=== PATIENT | female | born 1985 | race Caucasian/White ===

== ENCOUNTER 2023-08-16 22:19 | Inpatient (IN) | payer BC ==
[~2023-08-16] VITALS: Ht 175.3 cm; Wt 85.5 kg
--- NOTE | 2023-08-16 22:25 | NUR ---
to unit via wheelchair for labor assessment, accompanied by spouse. Pt reports "my water broke at 8:30." Oriented to room, monitor, plan of care. Questions invited and answered.
[2023-08-16 22:38] VITALS: BP 109/58; PULSE 71; TEMP 98.1
[2023-08-16] MEDS ORDERED: LR 1,000 ML IV SCH (23:00)
[2023-08-16] MEDS ORDERED: ROPivacaine PF 0.2% 200 ML IV ONE (23:52)
--- NOTE | 2023-08-16 23:56 | NUR ---
[employer] MA[employer] into room for epidural placement. See anesthesia record. Pt moves sit on edge of bed, EFM monitor tracing maternal HR. 0007 Test dose.
[2023-08-17] VITALS (31 sets, daily range): BP systolic 88–125; BP diastolic 48–65; PULSE 53–102; TEMP 97.6–98.5
[2023-08-17 00:10] LABS: BASO % 0.2 % (0.0-2.0); EOS # 0.1 K/mm3 (0.0-0.7); EOS % 0.9 % (0.0-4.0); GRAN # 7.1 K/mm3 (1.4-6.5); GRAN % 71.7 % (42.2-75.2); HEMOGLOBIN 11.4 g/dl (12.5-16.0); LYMPH # 1.8 K/mm3 (1.2-3.4); LYMPH % 18.1 % (20.0-51.0); MEAN CELL VOLUME 95 fl (80.0-100.0); MEAN CORPUSCULAR HEMOGLOBIN 32 pg (27-31); MEAN CORPUSCULAR HGB CONC 33 g/dl (33.0-37.0); MEAN PLATELET VOLUME 11.9 fl (7.4-10.4); MONO # 0.9 K/mm3 (0.1-0.6); MONO % 8.9 % (1.7-9.3); PLATELET COUNT 163 K/mm3 (130-400); RED BLOOD COUNT 3.62 M/mm3 (4.10-5.30)
[2023-08-17 00:11] LABS: HEMATOCRIT 34.3 % (37.0-47.0)
[2023-08-17] MEDS ORDERED: Ondansetron 4 MG/2 ML VIAL IV PRN (00:30)
[2023-08-17] MEDS ORDERED: diphenhydrAMINE 25 MG CAP PO PRN (00:30)
[2023-08-17] MEDS ORDERED: diphenhydrAMINE 50 MG/ML 1 ML VIAL IV PRN (00:30)
[2023-08-17] MEDS ORDERED: ePHEDrine 50 MG/10 ML VIAL IV PRN (00:30)
[2023-08-17] MEDS ORDERED: Naloxone 0.4 MG/ML VIAL IV PRN ×2 (00:30→05:45)
[2023-08-17] MEDS ORDERED: LEVOXYL0.1 MG PO (00:45)
--- NOTE | 2023-08-17 02:00 | NUR ---
Pt states "it's hard to catch my breath" Points to R lower rib cage stating "it feels like his foot is pushing against my lung" SPO2 100%. Repositioned to SF, warm blanket applied to R lower ribs. bp 88/49 0204 Ephedrine 10mg IV push, LR to bolus.
--- NOTE | 2023-08-17 02:15 | NUR ---
Pt states "it's feels better"
[2023-08-17] MEDS ORDERED: LR & Oxytocin 500 ML IV SCH (03:00)
--- NOTE | 2023-08-17 04:35 | NUR ---
Pt reports increased pain and new onset of nausea. Encouraged to push epidural button. SVE Ant Rim.
--- NOTE | 2023-08-17 04:47 | NUR ---
FHT'S TO 100'S. [address] Chacon called to come for delivery. 0455 FHT's 100's moderate variability. Pt states "I'm ot pushing but I can feel him moving down".
--- NOTE | 2023-08-17 05:00 | NUR ---
FHT's 115-120. [place] catheter dc'd. 1413 Dr Chacon into room. Pt prepped for delivery. [address] Chacon, after reduction of nuchal of nuchal cord.
--- NOTE | 2023-08-17 05:16 | NUR ---
Placenta delivers spont and intact w 3vessel chord. Pitocin 30units in 500ccLR started at bolus rate per pump. 0518 Bi-manunal exam by Dr Chacon yields 0 clots, fundus firm.
[2023-08-17] MEDS ORDERED: Witch Hazel 50% Pads Bulk TUB TP PRN (05:45)
[2023-08-17] MEDS ORDERED: Magnes Hydrox (MOM) 80 MG/ML 30 ML CUP PO PRN (05:45)
[2023-08-17] MEDS ORDERED: Measles/Mumps/Rubella Virus Vaccine Live w Diluent 0.5 ML VIAL SQ SCH (05:45)
[2023-08-17] MEDS ORDERED: Mag/Al Hydrox/Simeth Susp 30 ML CUP PO PRN (05:45)
[2023-08-17] MEDS ORDERED: oxyCODONE 5 MG TAB PO PRN (05:45)
[2023-08-17] MEDS ORDERED: Loratadine 10 MG TAB PO PRN (05:45)
[2023-08-17] MEDS ORDERED: Ibuprofen 800 MG TAB PO SCH (05:45)
[2023-08-17] MEDS ORDERED: Phenylephrine/Mineral Oil/Petrolatum 57 GM TUBE RC PRN (05:45)
[2023-08-17] MEDS ORDERED: Acetaminophen 500 MG TAB PO PRN (05:45)
[2023-08-17] MEDS ORDERED: Erythromycin 0.5% Ophth Oint 1 GM UD TUBE OP SCH (07:30)
[2023-08-17] MEDS ORDERED: Phytonadione (Vitamin K) 1 MG/0.5 ML NEONATAL CONC IM SCH (07:30)
[2023-08-17] MEDS ORDERED: Sennosides/Docusate 8.6-50 MG TAB PO SCH (08:00)
[2023-08-17] MEDS ORDERED: Influenza Virus Vaccine, Quad '23-24 (6 MOS+) 0.5 ML SYRINGE IM SCH (09:00)
--- NOTE | 2023-08-17 09:50 | NUR ---
PATIENT REQUESTING TO AMBULATE TO THE BATHROOM AT THIS TIME. PATIENT DANGLES ON SIDE OF BED WITHOUT COMPLAINT OF DIZZINESS, PATIENT STANDS INDEPENDENTLY, AND AMBULATES TO THE RESTROOM WITH THIS RN. PATIENT TOLERATES AMBULATION WELL. 0911- PATIENT TO ROOM 216 VIA WHEELCHAIR. PATIENT AND SIGNIFICANT OTHER ORIENTED TO ROOM AND PATIENT ASSISTED INTO BED.
--- NOTE | 2023-08-17 20:22 | NUR ---
Report recieved. Resting in bed at this time. Updated whiteboard and reviewed POC. Questions invited and answered.
[2023-08-17] MEDS ORDERED: traZODone 50 MG TAB PO PRN (21:00)
[2023-08-18 08:00] VITALS: BP 78/42; PULSE 71; TEMP 98.7
[2023-08-18 08:30] VITALS: BP 96/67; PULSE 78
[2023-08-18] MEDS ORDERED: IBU800 M1 PO (09:22)
== END 2023-08-18 11:50 | disposition home or self-care (01) | DRG 807 ==
LOC: LDRO 22:19 → LDR 22:50 → OB 08-17 06:31 → LDR 08-17 06:31 → OB 08-17 09:55
PROVIDERS: Obstetrics & Gynecology; ADMIT Obstetrics & Gynecology
PROC: 10E0XZZ Delivery of Products of Conception, External Approach (ICD-10-PCS; principal; 2023-08-17)
PROC: 0KQM0ZZ Repair Perineum Muscle, Open Approach (ICD-10-PCS; 2023-08-17)
DX: O99.284 Endocrine, nutritional and metabolic diseases complicating childbirth (principal); Z37.0 Single live birth; E06.3 Autoimmune thyroiditis; O70.1 Second degree perineal laceration during delivery; K21.9 Gastro-esophageal reflux disease without esophagitis; O99.62 Diseases of the digestive system complicating childbirth; O69.81X0 Labor and delivery complicated by cord around neck, without compression, not applicable or unspecified; Z3A.38 38 weeks gestation of pregnancy; Z79.890 Hormone replacement therapy
CPT/HCPCS: J2590; J2795; J7120

== ENCOUNTER 2023-10-21 08:56 | Emergency (ER) | payer BC ==
[~2023-10-21] VITALS: Ht 175.3 cm; Wt 77.3 kg
[~2023-10-21 08:56] MED LIST: IBU800 M1 PO; LEVOXYL0.1 MG PO
[2023-10-21 09:05] VITALS: TEMP 98.4
[2023-10-21 12:05] VITALS: BP 113/73; PULSE 78
== END 2023-10-21 12:05 | disposition home or self-care (01) ==
LOC: COL.ER 08:56
DX: S09.90XA Unspecified injury of head, initial encounter (principal); S01.01XA Laceration without foreign body of scalp, initial encounter; W00.0XXA Fall on same level due to ice and snow, initial encounter